=== PATIENT | female | born 1955 | race Caucasian/White ===

== ENCOUNTER 2021-06-17 16:43 | Emergency (ER) | payer OTHER, BC ==
[~2021-06-17] VITALS: Ht 170.2 cm; Wt 73.0 kg
[2021-06-17] MEDS ORDERED: ULTRAM50 M1 PO (19:15)
[2021-06-17 19:34] VITALS: BP 118/65
== END 2021-06-17 19:34 | disposition home or self-care (01) | DRG 313 ==
LOC: ED 16:43
DX: R07.89 Other chest pain (principal); S40.011A Contusion of right shoulder, initial encounter; V43.52XA Car driver injured in collision with other type car in traffic accident, initial encounter

== ENCOUNTER 2021-08-26 17:40 | Emergency (ER) | payer BC ==
[~2021-08-26] VITALS: Ht 170.2 cm; Wt 75.7 kg
[~2021-08-26 17:40] MED LIST: ULTRAM50 M1 PO
[2021-08-26 18:05] VITALS: BP 126/91
[2021-08-26 18:23] VITALS: BP 125/67
[2021-08-26 18:30] VITALS: BP 128/71
[2021-08-26 19:00] VITALS: BP 113/72
[2021-08-26 19:30] VITALS: BP 112/58
[2021-08-26 20:09] VITALS: BP 112/58
== END 2021-08-26 20:22 | disposition home or self-care (01) | DRG 125 ==
LOC: ED 17:40
DX: S00.11XA Contusion of right eyelid and periocular area, initial encounter (principal); H11.31 Conjunctival hemorrhage, right eye; I48.91 Unspecified atrial fibrillation; E78.5 Hyperlipidemia, unspecified; K21.9 Gastro-esophageal reflux disease without esophagitis; W22.01XA Walked into wall, initial encounter; Y93.89 Activity, other specified; Y92.009 Unspecified place in unspecified non-institutional (private) residence as the place of occurrence of the external cause; Z79.01 Long term (current) use of anticoagulants